=== PATIENT | female | born 1985 | race Caucasian/White ===

== ENCOUNTER 2017-12-20 21:40 | Emergency (ER) | payer MEDICARE, MEDICAID ==
[2017-12-20 22:22] LABS: ABSOLUTE BASOPHILS # (AUTO) 0.1 10^3/uL (0.0-0.2); ABSOLUTE EOSINOPHILS # (AUTO) 0.2 10^3/uL (0.0-0.6); ABSOLUTE LYMPHOCYTES (AUTO) 1.5 10^3/uL (0.5-4.7); ABSOLUTE MONOCYTES (AUTO) 0.2 10^3/uL (0.1-1.4); ABSOLUTE NEUT (AUTO) 5.3 10^3/uL (1.7-8.2); BASOPHILS % (AUTO) 0.8 % (0-2); EOSINOPHILS % (AUTO) 3.3 % (0-6); HEMATOCRIT 33.2 % (36.0-47.0); HEMOGLOBIN 11.3 g/dL (12.0-15.5); LYMPHOCYTES % (AUTO) 20.9 % (13-45); MEAN CORPUSCULAR HEMOGLOBIN 28.7 pg (27.0-33.4); MEAN CORPUSCULAR HGB CONC 34.2 g/dL (32.0-36.0); MEAN CORPUSCULAR VOLUME 84 fl (80-97); MONOCYTES % (AUTO) 2.7 % (3-13); PLATELET COUNT 251 10^3/uL (150-450); RED BLOOD COUNT 3.95 10^6/uL (3.72-5.28); RED CELL DISTRIBUTION WIDTH 13.7 % (11.5-14.0); SEGMENTED NEUTROPHILS % (AUTO) 72.3 % (42-78); TOTAL CELLS COUNTED % (AUTO) 100 %; WHITE BLOOD COUNT 7.4 10^3/uL (4.0-10.5)
[2017-12-20 22:33] LABS: ALANINE AMINOTRANSFERASE 19 U/L (9-52); ALBUMIN 3.2 g/dL (3.5-5.0); ALKALINE PHOSPHATASE 53 U/L (38-126); ANION GAP 14 (5-19); ASPARTATE AMINO TRANSFERASE 12 U/L (14-36); BILIRUBIN,DIRECT 0.4 mg/dL (0.0-0.4); BILIRUBIN,TOTAL 0.5 mg/dL (0.2-1.3); BLOOD UREA NITROGEN 32 mg/dL (7-20); CALCIUM 8.4 mg/dL (8.4-10.2); CARBON DIOXIDE 32 mmol/L (22-30); CHLORIDE 90 mmol/L (98-107); GLUCOSE 104 mg/dL (75-110); LIPASE 354.2 U/L (23-300); SODIUM 136.3 mmol/L (137-145); TOTAL PROTEIN 5.7 g/dL (6.3-8.2)
[2017-12-20 22:56] LABS: POTASSIUM 2.4 mmol/L (3.6-5.0)
[2017-12-20] MEDS ORDERED: ONDANSETRON HCL INJ/PF 4 MG/2 ML SDV IV ONE (23:35)
[2017-12-20] MEDS ORDERED: POTASSI CL 20 MEQ/50 ML RIDER 20 MEQ/50 ML RTUPB IV ONE (23:39)
--- NOTE | 2017-12-20 23:49 | ER Document Report ---
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 The patient was diagnosed as having PD catheter associated peritonitis on 16 December. She has been transitioned to intraperitoneal vancomycin for treatment of a staph epidermidis infection known to be sensitive to vancomycin based on culture data. She states that her PD fluid has become less cloudy but her abdominal pain does persist as does her ongoing vomiting. She describes her abdominal pain as being a severe, generalized, abdominal cramping. She states that she has taken Tylenol with minimal to no improvement of this pain. Nothing other than movement or touching the abdomen worsens the pain. She has no previous history of PD catheter associated peritonitis. She is being followed by her power plant electrician for this issue. She has continued to have fevers at home. She notes that she is intermittently able to tolerate oral intake but does have persistent vomiting throughout the day. She was informed that she was hypokalemic by her dialysis nurse and was encouraged to come to the emergency department for this issue. TRAVEL OUTSIDE OF THE [place] IN LAST 30 DAYS: No - Related Data Allergies/Adverse Reactions: No Known Allergies Allergy (Verified 12/20/17 22:39) Past Medical History - General Information source: Patient - Social History Smoking Status: Never Smoker Chew tobacco use (# tins/day): No Frequency of alcohol use: None Drug Abuse: None Lives with: Spouse/Significant other Family History: Reviewed & Not Pertinent Patient has suicidal ideation: No Patient has homicidal ideation: No Renal/ Medical History: Reports: Hx Peritoneal Dialysis Review of Systems - Review of Systems Notes: Constitutional: Positive for fever. HENT: Negative for sore throat. Eyes: Negative for visual changes. Cardiovascular: Negative for chest pain. Respiratory: Negative for shortness of breath. Gastrointestinal: Positive for abdominal pain and fever Genitourinary: Negative for dysuria. Musculoskeletal: Negative for back pain. Skin: Negative for rash. Neurological: Negative for headaches, weakness or numbness. 10 point ROS negative except as marked above and in HPI. Physical Exam - Vital signs Vitals: Resp 17 12/20/17 21:50 Interpretation: Tachycardic, Febrile Notes: PHYSICAL EXAMINATION: GENERAL: Appears uncomfortable and in pain. HEAD: Atraumatic, normocephalic. EYES: Pupils equal round and reactive to light, extraocular movements intact, sclera anicteric, conjunctiva are normal. ENT: nares patent, oropharynx clear without exudates. Moderately dry mucous membranes. NECK: Normal range of motion, supple without lymphadenopathy LUNGS: Breath sounds clear to auscultation bilaterally and equal. No wheezes rales or rhonchi. HEART: Regular tachycardia without murmurs ABDOMEN: Soft, distended abdomen. Generalized abdominal tenderness without localization of the pain. PD catheter in place of the left mid abdomen EXTREMITIES: Normal range of motion, no pitting or edema. No cyanosis. NEUROLOGICAL: No focal neurological deficits. Moves all extremities spontaneously and on command. PSYCH: Anxious, tearful. SKIN: Warm, Dry, normal turgor, no rashes or lesions noted. Course - Re-evaluation Re-evalutation: 12/20/17 23:42 Patient presents with known staph epidermidis PD catheter associated peritonitis currently treated with vancomycin as an outpatient with concerns of generalized and worsening abdominal pain as well as ongoing persistent vomiting that precludes her from being able to tolerate significant oral intake at home. Her potassium is notably low at 2.4. The patient is not in significant pain, has peritoneal signs on exam. Her PD catheter has not been changed out. We do not currently have nephrology almond sorter. I have discussed with the hospitalist who does not feel comfortable managing the patient in the absence of nephrology particular given that the patient may need her PD catheter exchanged. 12/21/17 00:07 I discussed this case with Dr. Hernandez at [facility] who is excepted the patient for transfer. Potassium and magnesium repletion have been initiated. 12/21/17 03:29 Patient has again become febrile here in the emergency department. Tylenol will be administered. Cultures have already been obtained. Will obtain repeat cultures from the PD fluid. Awaiting transport. - Vital Signs Vital signs: Temp Pulse Resp BP Pulse Ox 101.1 F H 20 103/41 L 94 12/21/17 02:05 12/21/17 02:01 12/21/17 01:01 12/21/17 02:01 - Laboratory Result Diagrams: 12/20/17 22:05 11/09/18 22:05 Laboratory results interpreted by me: 12/20/17 12/20/17 22:05 22:05 Hgb 11.3 L Hct 33.2 L Monocytes % 2.7 L Sodium 136.3 L Potassium 2.4 L* Chloride 90 L Carbon Dioxide 32 H BUN 32 H Creatinine 13.49 H Est GFR ( Amer) 4 L Est GFR (Non-Af Amer) 3 L AST 12 L Total Protein 5.7 L Albumin 3.2 L Lipase 354.2 H Discharge - Discharge Clinical Impression: Peritonitis in infectious disease Peritoneal dialysis catheter infection Qualifiers: Encounter type: initial encounter Qualified Code(s): T85.71XA - Infection and inflammatory reaction due to peritoneal dialysis catheter, initial encounter Nausea and vomiting Qualifiers: Vomiting type: unspecified Vomiting Intractability: non-intractable Qualified Code(s): R11.2 - Nausea with vomiting, unspecified Sepsis Qualifiers: Sepsis type: sepsis due to unspecified organism Qualified Code(s): A41.9 - Sepsis, unspecified organism Condition: Fair Disposition: [facility] Referrals: Lalit SCHWARTZ MD [Primary Care Provider] - Follow up as needed
[2017-12-20] MEDS: MORPHINE SULFATE 10 MG/ML INJ IV PRN (23:53)
[2017-12-21] MEDS: MAGNESIUM SULFATE/D5W 1 GM/100 ML RTUPB IV SCH ×2 (00:18→03:46)
[2017-12-21] MEDS ORDERED: ACETAMINOPHEN 325 MG TABLET PO ONE (03:29)
[2017-12-21] MEDS ORDERED: MAGNESIUM SULFATE/D5W 1 GM/100 ML RTUPB IV SCH (03:30)
[2017-12-21] MEDS ORDERED: NORMAL SALINE 1000 ML 250 ML IV ONE (03:33)
[2017-12-21] MEDS: MORPHINE SULFATE 10 MG/ML INJ IV PRN (03:45)
[2017-12-21 05:24] VITALS: BP 106/57
--- NOTE | 2017-12-21 07:50 | EKG REPORT ---
SEVERITY:- BORDERLINE ECG - SINUS TACHYCARDIA BORDERLINE T ABNORMALITIES, DIFFUSE LEADS : Confirmed by: Renato Dos Santos MD 21-Dec-2017 07:50:18
== END 2017-12-21 05:40 | disposition short-term general hospital (02) ==
LOC: ER 21:40
DX: T82.7XXA Infection and inflammatory reaction due to other cardiac and vascular devices, implants and grafts, initial encounter (principal); A41.9 Sepsis, unspecified organism; K65.9 Peritonitis, unspecified; Y84.1 Kidney dialysis as the cause of abnormal reaction of the patient, or of later complication, without mention of misadventure at the time of the procedure; R11.2 Nausea with vomiting, unspecified; R10.84 Generalized abdominal pain
CPT/HCPCS: 93005; 99285; 96375; 96365; 96366; 36415; 87040; 83605; 83690; 83735; 84703; 85025; 80053; 93010; A9270; J2270 ×2; J3475; J2405; J3480

== ENCOUNTER → 2017-12-20 | Outpatient (CLI) | payer MEDICARE, MEDICAID ==
[2017-12-20 14:53] LABS: VANCOMYCIN,TROUGH 16.2 ug/mL (5.0-20.0)
== END ==
LOC: OD 13:27
PROVIDERS: ATTEND Internal Medicine Nephrology
DX: K65.9 Peritonitis, unspecified (principal); Z79.2 Long term (current) use of antibiotics
CPT/HCPCS: 36415; 80202

== ENCOUNTER 2017-12-30 23:12 | Emergency (ER) | payer MEDICARE, MEDICAID ==
[2017-12-31 01:03] LABS: ABSOLUTE BASOPHILS # (AUTO) 0.1 10^3/uL (0.0-0.2); ABSOLUTE EOSINOPHILS # (AUTO) 0.3 10^3/uL (0.0-0.6); ABSOLUTE LYMPHOCYTES (AUTO) 1.1 10^3/uL (0.5-4.7); ABSOLUTE MONOCYTES (AUTO) 0.3 10^3/uL (0.1-1.4); ABSOLUTE NEUT (AUTO) 5.7 10^3/uL (1.7-8.2); BASOPHILS % (AUTO) 1.3 % (0-2); LYMPHOCYTES % (AUTO) 14.2 % (13-45); MEAN CORPUSCULAR HGB CONC 34.2 g/dL (32.0-36.0); MEAN CORPUSCULAR VOLUME 85 fl (80-97); MONOCYTES % (AUTO) 4.4 % (3-13); PLATELET COUNT 233 10^3/uL (150-450); RED BLOOD COUNT 4.13 10^6/uL (3.72-5.28); RED CELL DISTRIBUTION WIDTH 14.1 % (11.5-14.0); SEGMENTED NEUTROPHILS % (AUTO) 76.1 % (42-78); TOTAL CELLS COUNTED % (AUTO) 100 %; WHITE BLOOD COUNT 7.5 10^3/uL (4.0-10.5)
[2017-12-31 01:21] LABS: ALANINE AMINOTRANSFERASE 28 U/L (9-52); ALBUMIN 3.3 g/dL (3.5-5.0); ALKALINE PHOSPHATASE 107 U/L (38-126); ANION GAP 17 (5-19); ASPARTATE AMINO TRANSFERASE 23 U/L (14-36); BILIRUBIN,DIRECT 0.4 mg/dL (0.0-0.4); BILIRUBIN,TOTAL 0.5 mg/dL (0.2-1.3); BLOOD UREA NITROGEN 35 mg/dL (7-20); CALCIUM 9.2 mg/dL (8.4-10.2); CARBON DIOXIDE 29 mmol/L (22-30); CHLORIDE 96 mmol/L (98-107); GLUCOSE 85 mg/dL (75-110); POTASSIUM 3.2 mmol/L (3.6-5.0); SODIUM 141.6 mmol/L (137-145); TOTAL PROTEIN 5.9 g/dL (6.3-8.2)
[2017-12-31 01:28] LABS: ACETAMINOPHEN < 10 ug/mL (10-30); ALCOHOL < 10 mg/dL (NONE DETECTED); SALICYLATE < 1.0 mg/dL (2.0-20.0)
[2017-12-31 03:12] VITALS: BP 142/82
--- NOTE | 2017-12-31 04:16 | ER Document Report ---
ED General - General Chief Complaint: Psych Problem Stated Complaint: PSYCH EVAL Time Seen by Provider: 12/31/17 00:08 Mode of Arrival: Medic TRAVEL OUTSIDE OF THE [place] IN LAST 30 DAYS: No - HPI Patient complains to provider of: Anger Onset: Other - This is a 32-year-old female who presents for evaluation of threats to discontinue her peritoneal dialysis in the setting of FSGS. Her who is also the father of her 2 children notes that they were in disagreement tonight and that she did threaten to potentially stop her peritoneal dialysis. She currently denies any desire to harm herself or anyone else but is otherwise obstructive and difficult to obtain history from. - Related Data Allergies/Adverse Reactions: No Known Allergies Allergy (Verified 12/20/17 22:39) Past Medical History - General Information source: Patient, Relative - Social History Smoking Status: Unknown if Ever Smoked Chew tobacco use (# tins/day): No Frequency of alcohol use: None Drug Abuse: None Family History: Reviewed & Not Pertinent Patient has suicidal ideation: Yes Patient has homicidal ideation: No - Past Medical History Cardiac Medical History: Reports: Hx Hypertension Denies: Hx Coronary Artery Disease, Hx Heart Attack Pulmonary Medical History: Denies: Hx Asthma, Hx Bronchitis, Hx COPD, Hx Pneumonia Neurological Medical History: Denies: Hx Cerebrovascular Accident, Hx Seizures Endocrine Medical History: Reports: 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 Renal/ Medical History: Reports: Hx End Stage Renal Disease, Hx Peritoneal Dialysis GI Medical History: Reports: Hx Gastroesophageal Reflux Disease Musculoskeletal Medical History: Denies Hx Arthritis Past Surgical History: Reports: Hx Section, Hx Cholecystectomy - Immunizations Hx Diphtheria, Pertussis, Tetanus Vaccination: Yes Review of Systems - Review of Systems -: Yes All other systems reviewed and negative Physical Exam - Vital signs Vitals: Temp Pulse Resp BP Pulse Ox 98.5 F 116 H 20 145/107 H 100 12/30/17 23:26 12/30/17 23:26 12/30/17 23:26 12/30/17 23:26 12/30/17 23:26 - General General appearance: Appears well In distress: None - HEENT Head: Normocephalic, Atraumatic Eyes: Normal Pupils: PERRL - Respiratory Respiratory status: No respiratory distress Chest status: Nontender Breath sounds: Normal Chest palpation: Normal - Cardiovascular Rhythm: Regular Heart sounds: Normal auscultation Murmur: No - Abdominal Inspection: Other - Peritoneal dialysis catheter implanted Bowel sounds: Normal Tenderness: Nontender Organomegaly: No organomegaly - Back Back: Normal - Extremities General upper extremity: Normal inspection, Nontender, Normal color, Normal ROM , Normal temperature General lower extremity: Normal inspection, Nontender, Normal color, Normal ROM , Normal temperature, Normal weight bearing. No: Desmond's sign - Neurological Neuro grossly intact: Yes Cognition: Normal Orientation: AAOx4 A[place]on Coma Scale Eye Opening: Spontaneous Danitza Coma Scale Verbal: Oriented Danitza Coma Scale Motor: Obeys Commands Avalon Coma Scale Total: 15 Speech: Normal Motor strength normal: LUE, RUE, LLE, RLE Sensory: Normal - Psychological Associated symptoms: Agitated, Angry, Combative Course - Re-evaluation Re-evalutation: 12/31/17 04:17 32-year-old female presents for evaluation of anger reaction and threats to discontinue her peritoneal dialysis. Initially discussions with this patient she is difficult to obtain history from , she lashes out speaks specifically that she is frustrated that she is here does not know why she is here has no desire to harm herself but is uncertain how her mood is. Otherwise she does not wish to speak to me at this time. Patient at one point attempted to stand up and walk out at this time is uncertain whether or not she represents a danger to herself are now because she is on peritoneal dialysis and had made threats to discontinue it voluntarily. It is difficult to ascertain whether or not she is of sound mind. As such briefly place this patient up on hold, returned to her room, contacted her for collateral information. The notes that she has been difficult to deal with of late because they have differences of opinion frequently. They have had multiple episodes in which they disagreed and she lashed out sometimes with great anger at him. She is not doing anything violent or self-injurious however. I spoke to the and encouraged him to present to the emergency room with the patient's peritoneal dialysis equipment in case she needed to stay in the hospital. Upon reassessment with the we discussed the patient's desires including any desire to harm herself or anyone else she notes that she has no desire to harm anyone L or herself at this time that she is just tired of having to do peritoneal dialysis. She does not wish to discontinue her peritoneal dialysis however as she does have 2 children. We did speak at length about the importance of her obtaining appropriate follow- up including potential mental health evaluation through a therapist or her public health social worker who has a case for her already started. She and her were in agreement that they are safe at this time as there is no obvious desire for her to harm herself. She will resume her peritoneal dialysis at home. We will plan for this patient undergo discharge home with return precautions and follow-up with her public health social worker. - Vital Signs Vital signs: Temp Pulse Resp BP Pulse Ox 98.3 F 77 20 142/82 H 100 12/31/17 03:11 12/31/17 03:11 12/31/17 03:11 12/31/17 03:11 12/31/17 03:11 - Laboratory Result Diagrams: 12/31/17 00:53 12/31/17 00:53 Laboratory results interpreted by me: 12/31/17 12/31/17 00:53 00:53 Hct 35.0 L RDW 14.1 H Potassium 3.2 L Chloride 96 L BUN 35 H Creatinine 12.87 H Est GFR ( Amer) 4 L Est GFR (Non-Af Amer) 3 L Total Protein 5.9 L Albumin 3.3 L Salicylates < 1.0 L Acetaminophen < 10 L Discharge - Discharge Clinical Impression: Anger reaction, Peritoneal dialysis catheter in situ Condition: Good Disposition: HOME, SELF-CARE Additional Instructions: Your seen today in the emergency department for your dialysis threats. You had an evaluation including a physical exam and blood work. In discussion with you as well as your it does not seem that you represent a danger to yourself or anyone else at this time. You should continue your peritoneal dialysis as previously. You should contact her public health social worker in the morning to talk about potential follow-up with a therapist. He should return for any worsening fevers or chills, abdominal pain or other symptoms. If you have any desire to hurt yourself please return to the emergency room. Referrals: Lalit SCHWARTZ MD [Primary Care Provider] - Follow up as needed
--- NOTE | 2017-12-31 15:45 | EKG REPORT ---
SEVERITY:- NORMAL ECG - SINUS RHYTHM : Confirmed by: Corinne Bahena MD 31-Dec-2017 15:45:04
== END 2017-12-31 03:21 | disposition home or self-care (01) ==
LOC: ER 23:12
DX: R45.4 Irritability and anger (principal); Z99.2 Dependence on renal dialysis
CPT/HCPCS: 36415; 80053; 80307; 84703; 85025; 93005; 93010; 99285

== ENCOUNTER → 2018-01-01 | Outpatient (CLI) | payer MEDICARE, MEDICAID ==
[2018-01-01 14:31] LABS: VANCOMYCIN,TROUGH 21.2 ug/mL (5.0-20.0)
== END ==
LOC: OD 13:10
PROVIDERS: ATTEND Internal Medicine Nephrology
DX: E87.6 Hypokalemia (principal)
CPT/HCPCS: 36415; 80202; 84132

== ENCOUNTER 2018-02-24 05:59 | Day surgery (SDC) | payer MEDICARE, MEDICAID ==
[~2018-02-24 05:59] MED LIST: DIAZEPAM 5 MG TABLET ONE; DIAZEPAM 5 MG TABLET PO PRN; OXYCODONE-ACETAMINOPHEN 5-325 MG TABLET ONE; OXYCODONE-ACETAMINOPHEN 5-325 MG TABLET PO PRN
[2018-02-24 07:11] LABS: ABSOLUTE BASOPHILS # (AUTO) 0.1 10^3/uL (0.0-0.2); ABSOLUTE EOSINOPHILS # (AUTO) 0.2 10^3/uL (0.0-0.6); ABSOLUTE LYMPHOCYTES (AUTO) 1.2 10^3/uL (0.5-4.7); ABSOLUTE MONOCYTES (AUTO) 0.3 10^3/uL (0.1-1.4); ABSOLUTE NEUT (AUTO) 4.8 10^3/uL (1.7-8.2); BASOPHILS % (AUTO) 1.2 % (0-2); EOSINOPHILS % (AUTO) 3.4 % (0-6); HEMATOCRIT 29.5 % (36.0-47.0); HEMOGLOBIN 10.2 g/dL (12.0-15.5); LYMPHOCYTES % (AUTO) 18.4 % (13-45); MEAN CORPUSCULAR HEMOGLOBIN 29.6 pg (27.0-33.4); MEAN CORPUSCULAR HGB CONC 34.7 g/dL (32.0-36.0); MEAN CORPUSCULAR VOLUME 85 fl (80-97); MONOCYTES % (AUTO) 4.2 % (3-13); PLATELET COUNT 179 10^3/uL (150-450); RED BLOOD COUNT 3.46 10^6/uL (3.72-5.28); RED CELL DISTRIBUTION WIDTH 15.4 % (11.5-14.0); SEGMENTED NEUTROPHILS % (AUTO) 72.8 % (42-78); TOTAL CELLS COUNTED % (AUTO) 100 %; WHITE BLOOD COUNT 6.6 10^3/uL (4.0-10.5)
[2018-02-24 07:23] LABS: ANION GAP 10 (5-19); BLOOD UREA NITROGEN 32 mg/dL (7-20); CALCIUM 8.6 mg/dL (8.4-10.2); CARBON DIOXIDE 26 mmol/L (22-30); CHLORIDE 104 mmol/L (98-107); GLUCOSE 87 mg/dL (75-110); POTASSIUM 5.5 mmol/L (3.6-5.0); SODIUM 140.2 mmol/L (137-145)
[2018-02-24] MEDS ORDERED: LIDOCAINE 0.5% INJ-PF (5 MG/ML) 50 ML SDV ONE (07:39)
[2018-02-24] MEDS ORDERED: HEPARIN SOD (PORCINE) 5,000 UNIT/ML 1 ML SYRINGE ONE (07:50)
[2018-02-24] MEDS ORDERED: FENTANYL CITRATE INJ/PF 100 MCG/2 ML AMPUL ONE (07:50)
[2018-02-24] MEDS ORDERED: MIDAZOLAM 2 MG/2 ML INJ ONE (07:50)
[2018-02-24] MEDS ORDERED: ONDANSETRON HCL INJ/PF 4 MG/2 ML SDV ONE (09:51)
--- NOTE | 2018-02-24 10:49 | Discharge Summary ---
Discharge Summary (SDC) - Discharge Final Diagnosis: #1 malfunctioning AV fistula left radiocephalic. 2. End-stage renal disease on hemodialysis. 3. PermCath in place, right internal jugular. 4. Hypertension. Date of Surgery: 02/24/18 Discharge Date: 02/24/18 Condition: Good Treatment or Instructions: Discharge home [after recovery per ASU criteria]. Diet , [renal],as tolerated, when fully awake advance as tolerated. Activities within moderation encouraged. Follow up in my office by appointment in 2 days to a week. Call for appointment. Leave wounds [covered], [keep clean and dry, until office visit. Hold of on school/work [until evaluation in office]. Meds per med rec. May shower [in 48 hrs], [try to keep operated area as dry as possible]. Referrals: TERRELL BYRNE FNP-C [Primary Care Provider] - Discharge Diet: Other (Comments) - Renal. Respiratory Treatments at Home: Deep Breathing/Coughing Discharge Activity: Activity As Tolerated Report the Following to Your Physician Immediately: Shortness of Breath, Unusual Bleeding
--- NOTE | 2018-02-24 10:56 | Operative Report ---
Operative Report DATE OF SURGERY: 02/24/18 PREOPERATIVE DIAGNOSIS: #1 malfunctioning AV fistula left radiocephalic. 2. E nd-stage renal disease on hemodialysis. 3. PermCath in place, right internal jugular. 4. Hypertension. POSTOPERATIVE DIAGNOSIS: #1 malfunctioning AV fistula left radiocephalic. 2. End-stage renal disease on hemodialysis. 3. PermCath in place, right internal jugular. 4. Hypertension. OPERATION: 1. Ultrasound evaluation and real-time needle access into left forearm radiocephalic fistula. 2. Angioplasty and fistula, multiple. 3. Angiogram and interpretation. SURGEON: GRECIA HALL FINANCIAL RECORDING CLERK: None. ANESTHESIA: Moderate Sedation TISSUE REMOVED OR ALTERED: Not applicable. COMPLICATIONS: None. ESTIMATED BLOOD LOSS: 2 mL. INTRAOPERATIVE FINDINGS: Of a well founded AV fistula, left radiocephalic. Radial artery still somewhat on the small side but probably appropriate. Hyper pulsatile in the first 3 centimeters. An area of stenosis about 5 mm long about 1 cm away from the anastomosis appreciated. This was dilated with improvement although some residual stenosis. Stenosis estimated to be about 70% of the adjacent lumen. Also noted is a large draining side branch somewhat laterally and at about 6 cm from the anastomosis. The area from about 6 cm to about 14 cm was dilated up to 7 mm which with much improvement angiographically and also to palpation. The fistula may be available for use within a week. It may be necessary to ligate the draining branch which could be done in the operating room. Also repeat dilatation under heavier anesthesia may be indicated for the residual stenosis in the perianastomotic area. The patient seemed unusually sensitive to catheterization, Glidewire at the wrist was perceived as pain. We may need to use anesthesia monitoring with heavier sedation in future. PROCEDURE: PROCEDURE: After verifying the procedure and having obtained informed consent, the patient's left arm and forearm were prepared with Chlorhexidine and draped out with sterile linen. Local anesthesia infiltrated. Percutaneous access into the fistula ,[retrograde], obtained about [20 cm] from the arteriovenous anastomosis using a micro puncture needle followed by micro puncture wire and then a micro puncture catheter. This was done on ultrasound guidance using real-time access into the vein. Ultrasound was also used to size the vein. Angiogram demonstrated the aforementioned findings. Angioplasty was elected. A 0.035 Conway wire was inserted, and over this, a 6 [place] short introducer was placed, this was followed by a 5 mm angioplasty balloon . Angioplasty was now done at the perianastomotic segment. This was done very carefully using a 3 mils syringe sustained for 2 minutes. Angiogram demonstrated successful outcome, with some residual stenosis palpation continued to demonstrate hyper pulsatility. The balloon was now swapped over the wire for a 7 mm conquest angioplasty balloon. Angioplasty was done using the 6 cm long balloon to the introducer. Inflating with a 3 mils syringe for 3 minutes.]. Completion angiogram demonstrated [satisfactory result]. The instrumentation was now withdrawn over hand pressure for 10 minutes . Dressings applied, procedure concluded. Exposure time: 0.9 minutes Radiation: 2.79 Kylah lewis. Contrast: 25 mL of Isovue-M 300 low osmolality. DICTATING PHYSICIAN: GRECIA FERRERA M.D. cc: GRECIA FERRERA M.D. ([id number]) >>
[2018-02-24 15:29] VITALS: BP 136/76
--- NOTE | 2018-02-25 12:43 | RADIOLOGY REPORT (SQ) ---
EXAM DESCRIPTION: FISTULAGRAM W/PLASTY COMPLETED DATE/TIME: 02/25/2018 11:51 am REASON FOR STUDY: T82.858A T82.858A STENOSIS OF OTHER VASCULAR PROSTH DEV/GRFT, INIT Z79.899 OTHER NUCLEAR PLANT TECHNICAL ADVISOR (CURRENT) DRUG THERAPY COMPARISON: None. FLUOROSCOPY TIME: 0.9 minute. 65 images saved to PACS. TECHNIQUE: Intra-operative images acquired during surgical procedure to evaluate progress. NUMBER OF IMAGES: 65 images. LIMITATIONS: None. FINDINGS: Imaging in fluoroscopy during left upper extremity dialysis access evaluation and plasty b y Dr. Gil . Please refer to the operative report for further details. IMPRESSION: INTRA PROCEDURAL IMAGING ABOVE . COMMENT: Quality ID [id number]: Final reports for procedures using fluoroscopy that document radiation exp osure indices, or exposure time and number of fluorographic images (if radiation exposure indices are not available) Please consult full operative report of the attending physician for description of the procedure. TECHNICAL DOCUMENTATION: JOB ID: [id number] [employer]- All Rights Reserved Reading location - IP/workstation name: [email or web address]
== END 2018-02-24 11:45 | disposition home or self-care (01) ==
LOC: CCL 05:59
PROVIDERS: ATTEND Surgery
DX: T82.858A Stenosis of other vascular prosthetic devices, implants and grafts, initial encounter (principal); Y83.2 Surgical operation with anastomosis, bypass or graft as the cause of abnormal reaction of the patient, or of later complication, without mention of misadventure at the time of the procedure; I12.0 Hypertensive chronic kidney disease with stage 5 chronic kidney disease or end stage renal disease; N18.6 End stage renal disease; Z99.2 Dependence on renal dialysis; Z79.899 Other long term (current) drug therapy; Z01.818 Encounter for other preprocedural examination
CPT/HCPCS: 36415; 85025; 80048; 36902; 76937; C1752; C1725 ×2; C1887; C1894; C1769; J2250; J1644 ×2; A9270 ×2; J3010; J3490; J2405

== ENCOUNTER 2018-04-08 10:00 | Day surgery (SDC) | payer MEDICARE, MEDICAID ==
[2018-04-08] MEDS ORDERED: DIAZEPAM 5 MG TABLET ONE (11:05)
[2018-04-08] MEDS ORDERED: LIDOCAINE 0.5% INJ-PF (5 MG/ML) 50 ML SDV ONE (11:06)
[2018-04-08] MEDS ORDERED: OXYCODONE-ACETAMINOPHEN 5-325 MG TABLET ONE (11:06)
[2018-04-08] MEDS ORDERED: BACITRACIN INJ 50,000 UNIT VIAL ONE (11:06)
[2018-04-08 11:17] LABS: HEMATOCRIT 34.6 % (36.0-47.0); HEMOGLOBIN 11.8 g/dL (12.0-15.5); MEAN CORPUSCULAR HEMOGLOBIN 30.2 pg (27.0-33.4); MEAN CORPUSCULAR VOLUME 89 fl (80-97); PLATELET COUNT 198 10^3/uL (150-450); RED CELL DISTRIBUTION WIDTH 14.7 % (11.5-14.0); WHITE BLOOD COUNT 5.4 10^3/uL (4.0-10.5)
[2018-04-08 11:35] LABS: ANION GAP 11 (5-19); BLOOD UREA NITROGEN 53 mg/dL (7-20); CALCIUM 8.9 mg/dL (8.4-10.2); CARBON DIOXIDE 26 mmol/L (22-30); CHLORIDE 104 mmol/L (98-107); GLUCOSE 79 mg/dL (75-110); POTASSIUM 5.3 mmol/L (3.6-5.0); SODIUM 141.2 mmol/L (137-145)
[2018-04-08] MEDS ORDERED: CEFAZOLIN 1 GM/D5W RTU 1 GM/50 ML RTUPB IV PRN (12:00)
[2018-04-08] MEDS ORDERED: CEFAZOLIN INJ 1 GM VIAL ONE (12:04)
[2018-04-08] MEDS ORDERED: MIDAZOLAM 2 MG/2 ML INJ ONE (12:04)
[2018-04-08] MEDS ORDERED: FENTANYL CITRATE INJ/PF 100 MCG/2 ML AMPUL ONE (12:04)
[2018-04-08] MEDS ORDERED: VANCOMYCIN HCL 500 MG in DEXTROSE 5%-WATER 100 ML IV PRN (12:30)
--- NOTE | 2018-04-08 13:56 | PDOC H&P ---
General Chief Complaint: This patient is recently established on the left radiocephalic fistula. Unfortunately it is infiltrated and is not usable at this point. She is therefore in for insertion of a PermCath with the hope of taking it out after about 2 weeks once established in her fistula. - Diagnosis (1) Diabetes mellitus Is this a Current Diagnosis?: Yes (2) ESRD (end stage renal disease) on dialysis Is this a Current Diagnosis?: Yes (3) Hypertension Is this a Current Diagnosis?: Yes - Current Medications/Allergies Home Medications: Carvedilol [Coreg 12.5 mg Tablet] 12.5 mg PO Q12 05/28/16 Hydralazine HCl [Apresoline 25 mg Tablet] 25 mg PO BID 05/28/16 Alprazolam [Xanax] 1 mg PO PRN PRN 07/20/16 Furosemide [Lasix] 40 mg PO BID 07/20/16 Allergies/Adverse Reactions: No Known Allergies Allergy (Verified 02/24/18 07:03) Past Medical History Cardiac Medical History: Reports: Hypertension - on meds Denies: Coronary Artery Disease, Myocardial Infarction Pulmonary Medical History: Denies: Asthma, Bronchitis, Chronic Obstructive Pulmonary Disease (COPD), Pneumonia Neurological Medical History: Denies: Seizures Endocrine Medical History: Reports: Diabetes Mellitus Type 2 - Steroid-induced diabetes Renal/ Medical History: Reports: End Stage Renal Disease GI Medical History: Reports: Gastroesophageal Reflux Disease Musculoskeltal Medical History: Denies: Arthritis Hematology: Denies: Anemia Past Surgical History Past Surgical History: Reports: Section, Cholecystectomy Family History Family History: Reviewed & Not Pertinent Parental Family History Reviewed: No Children Family History Reviewed: No Sibling(s) Family History Reviewed.: No Social History Smoking Status: Former Smoker Frequency of Alcohol Use: None Hx Recreational Drug Use: No Drugs: None Hx Prescription Drug Abuse: No Physical Exam Vital Signs: Temp Pulse Resp BP Pulse Ox 98.8 F 58 L 18 191/108 H 100 04/08/18 11:30 04/08/18 11:30 04/08/18 11:30 04/08/18 11:30 04/08/18 11:30 Intake & Output 04/07/18 04/08/18 04/09/18 06:59 06:59 06:59 Weight 105 kg Additional comments: Constitutional: Well-developed well-nourished lady, increased body mass index. No apparent acute distress. Eyes: Mucous membranes pink and moist, pupils equal and reactive to light. Conjunctiva normal. Cornea normal. ENT: Hearing grossly normal. External pinna normal to inspection. Teeth intact. Tongue normal to inspection. Chest: Left-sided tattoos noted. Scars of previous PermCath on the right. Respiratory: Normal respiratory effort. Psychiatric: Judgment, memory, insight seem normal. Mood is pleasant and appropriate. Extremities: Upper extremities show normal range of movement. Pulses present noted to the radial arteries. Capillary refill normal. No cyanosis noted. No muscle wasting noted. Left-sided radiocephalic fistula with excellent bruit. Considerable swelling bruising and induration secondary to infiltration. Impression/Plan Plan: The plan is to insert a permacatheter in this patient who has not had dialysis in several days. The hope is to rest her fistula to allow dissipation of the infiltrate and use of her fistula. The hope is to get rid of the PermCath within 2 weeks.
--- NOTE | 2018-04-08 13:58 | Discharge Summary ---
Discharge Summary (SDC) - Discharge Final Diagnosis: #1 infiltration of AV fistula. 2. End-stage renal disease on hemodialysis. 3. Diabetes mellitus type 2. 4. Hypertension. Treatment or Instructions: Discharge home [after recovery per ASU criteria]. Diet , [renal],as tolerated, when fully awake advance as tolerated. Activities within moderation encouraged. Follow up in my office by appointment on of this week. Call for appointment. Leave wounds [covered], [keep clean and dry, until office visit. Meds per med rec. May shower [in 48 hrs], [try to keep operated area as dry as possible]. Referrals: TERRELL BYRNE FNP-C [Primary Care Provider] - Discharge Diet: Other (Comments) - Renal, diabetic. Respiratory Treatments at Home: Deep Breathing/Coughing Discharge Activity: Activity As Tolerated Report the Following to Your Physician Immediately: Shortness of Breath
--- NOTE | 2018-04-08 14:04 | Operative Report ---
Operative Report DATE OF SURGERY: 04/08/18 PREOPERATIVE DIAGNOSIS: #1 infiltration of AV fistula. 2. End-stage renal dis ease on hemodialysis. 3. Diabetes mellitus type 2. 4. Hypertension. POSTOPERATIVE DIAGNOSIS: #1 infiltration of AV fistula. 2. End-stage renal disease on hemodialysis. 3. Diabetes mellitus type 2. 4. Hypertension. OPERATION: 1. Ultrasound evaluation of both right and left internal jugular veins. 2. Attempted venous access in the right internal jugular vein under real-time ultrasound guidance. 3. Access in the left internal jugular vein under ultrasound guidance. 4. Left-sided PermCath insertion. 5. Angiogram and interpretation. SURGEON: GRECIA HALL STOCK MANAGER: None. ANESTHESIA: Moderate Sedation TISSUE REMOVED OR ALTERED: Not applicable. COMPLICATIONS: Right internal jugular vein thrombosed. Challenging access through the left. ESTIMATED BLOOD LOSS: 5 mL. INTRAOPERATIVE FINDINGS: Of a partially thrombosed right internal jugular vein. Access proved difficult and the site was abandoned. Satisfactory visualization and access in the left vein. Estimated 1.5 cm in diameter. Preferential tracking of the Glidewire down into branches of the innominate vein. This was elucidated on angiogram. Satisfactory manipulation of Glidewire down the innominate and superior vena cava and inferior vena cava. Need for a ultra- stiff guidewire because of a tendency to buckle with discomfort to the patient. Ultra-stiff Glidewire was of immeasurable benefit and allowed satisfactory insertion of catheter. Easy egress of blood and ingress of heparinized solution. Contrast demonstrates smooth flow of contrast through the right atrium, ventricle and pulmonary outflow tract. PROCEDURE: After obtaining informed consent, the patient was taken to the [[facility] [employer]] and positioned supine. The [right neck] and chest were prepared with chlorhexidine and draped out with sterile linen. After the " universal timeout", in which it was verified that the patient continued to receive antibiotic, the procedure commenced. A steriley sheathed ultrasound probe was used to evaluate the [right internal jugular] vein. Local anesthesia was infiltrated adjacent to the probe. Access into the [right internal jugular] vein was attempted using a micropuncture needle. Several such attempts were made. With inability to confirm adequate position of the Glidewire this route was abandoned. The left neck was now prepared and draped out. Access into the left internal jugular vein was obtained under ultrasound guidance, real-time was obtained using a micropuncture needle, followed by micropuncture wire and then a micropuncture catheter. This was followed by introduction of a 0.035 gluidewire the tip of which was placed down into the inferior vena cava . A 27 cm long [per catheter] was now positioned over the chest and an exit site marked and locally anesthetized ,the catheter was placed between the 2 incisions. Proximally, the catheter was now positioned using a peel-away sheath, after dilation. Dilation was challenging as there was a tendency for the wire to track down was rather than following the course of the left innominate. For this reason the Glidewire was replaced with a super stiff Glidewire. This allowed satisfactory and safe tracking of the catheters. Easy ingress of heparinized solution and egress of blood obtained through both ports. A completion angiogram was done by injecting contrast. The findings were as dictated. The neck incision was now closed using interrupted 3-0 PDS to the subcutaneous tissues, the catheter was anchored at the exit site using 3-0 PDS. A Biopatch device was now placed adjacent to the catheter. Dressings were applied and the procedure concluded. Copies of the dictated operative report for Dr. Grecia Gil MD.concluded. Copies of the dictated operative report for Dr. Grecia Gil MD.
[2018-04-08] MEDS ORDERED: ONDANSETRON 4 MG TAB.RAPDIS ONE (14:49)
--- NOTE | 2018-04-08 14:59 | RADIOLOGY REPORT (SQ) ---
EXAM DESCRIPTION: TUNNELED CENTRAL LINE; GUIDANCE FLUOROSCOPIC COMPLETED DATE/TIME: 04/08/2018 1:52 pm REASON FOR STUDY: NEED FOR VASCULAR ACCESS T82.858A STENOSIS OF OTHER VASCULAR PROSTH DEV/GRFT, INI T COMPARISON: None. FLUOROSCOPY TIME: 2.1 minutes 45 digital radiographic fluoroscopic images saved to PACS. TECHNIQUE: Intra-operative images acquired during surgical procedure to evaluate progress. NUMBER OF IMAGES: 45 digital fluoroscopic images LIMITATIONS: None. FINDINGS: Intra procedural imaging and fluoro during placement of a left-sided central venous dialys is catheter with the tip in the right atrium. Please see the operative report for further details IMPRESSION: INTRA PROCEDURAL IMAGING ABOVE . COMMENT: Quality ID [id number]: Final reports for procedures using fluoroscopy that document radiation exp osure indices, or exposure time and number of fluorographic images (if radiation exposure indices are not available) Please consult full operative report of the attending physician for description of the procedure. TECHNICAL DOCUMENTATION: JOB ID: [id number] [employer]- All Rights Reserved Reading location - IP/workstation name: [email or web address]
--- NOTE | 2018-04-08 14:59 | RADIOLOGY REPORT (SQ) ---
EXAM DESCRIPTION: TUNNELED CENTRAL LINE; GUIDANCE FLUOROSCOPIC COMPLETED DATE/TIME: 04/08/2018 1:52 pm REASON FOR STUDY: NEED FOR VASCULAR ACCESS T82.858A STENOSIS OF OTHER VASCULAR PROSTH DEV/GRFT, INI T COMPARISON: None. FLUOROSCOPY TIME: 2.1 minutes 45 digital radiographic fluoroscopic images saved to PACS. TECHNIQUE: Intra-operative images acquired during surgical procedure to evaluate progress. NUMBER OF IMAGES: 45 digital fluoroscopic images LIMITATIONS: None. FINDINGS: Intra procedural imaging and fluoro during placement of a left-sided central venous dialys is catheter with the tip in the right atrium. Please see the operative report for further details IMPRESSION: INTRA PROCEDURAL IMAGING ABOVE . COMMENT: Quality ID [id number]: Final reports for procedures using fluoroscopy that document radiation exp osure indices, or exposure time and number of fluorographic images (if radiation exposure indices are not available) Please consult full operative report of the attending physician for description of the procedure. TECHNICAL DOCUMENTATION: JOB ID: [id number] [employer]- All Rights Reserved Reading location - IP/workstation name: [email or web address]
[2018-04-08] MEDS ORDERED: HYDRALAZINE HCL 25 MG TABLET PO ONE (15:30)
[2018-04-08] MEDS ORDERED: CARVEDILOL 12.5 MG TABLET PO ONE (15:30)
[2018-04-08] MEDS ORDERED: FUROSEMIDE 40 MG TABLET PO ONE (15:30)
[2018-04-08] MEDS ORDERED: ONDANSETRON 4 MG TAB.RAPDIS PO ONE (15:30)
[2018-04-08 20:19] VITALS: BP 199/111
== END 2018-04-08 15:40 | disposition home or self-care (01) ==
LOC: CCL 10:00
PROVIDERS: ATTEND Surgery
DX: T82.858A Stenosis of other vascular prosthetic devices, implants and grafts, initial encounter (principal); Y83.2 Surgical operation with anastomosis, bypass or graft as the cause of abnormal reaction of the patient, or of later complication, without mention of misadventure at the time of the procedure; E11.22 Type 2 diabetes mellitus with diabetic chronic kidney disease; I12.0 Hypertensive chronic kidney disease with stage 5 chronic kidney disease or end stage renal disease; N18.6 End stage renal disease; Z99.2 Dependence on renal dialysis; Z79.899 Other long term (current) drug therapy; E09.9 Drug or chemical induced diabetes mellitus without complications; K21.9 Gastro-esophageal reflux disease without esophagitis
CPT/HCPCS: 36415; 85027; 80048; 36558; 76937; 77001; C1769 ×3; C1752; Q9967; J2250; J3490 ×2; J0690; A9270 ×6; J3010; J3370; J1644; S0119

== ENCOUNTER 2019-04-09 17:59 | Emergency (ER) | payer MEDICARE, MEDICAID ==
[2019-04-09] MEDS ORDERED: ONDANSETRON 4 MG TAB.RAPDIS PO ONE (18:36)
--- NOTE | 2019-04-09 18:38 | ER Document Report ---
ED Medical Screen (RME) - General Chief Complaint: Cough Stated Complaint: COUGH,SHORT OF BREATH,NAUSEA Time Seen by Provider: 04/09/19 18:26 Primary Care Provider: TERRELL BYRNE FNP-C [Primary Care Provider] - Follow up as needed Notes: HPI: 33-year-old female who is a dialysis patient of Dr. Valencia, presenting to the emergency department complaining of flulike symptoms for 1 day. Patient states she did have dialysis yesterday, normally has Saturday. States that she began with cough that is dry in nature, slight shortness of breath, low-grade fevers and body aches. Has had nausea with one episode of vomiting yesterday I have greeted and performed a rapid initial assessment of this patient. A comprehensive ED assessment and evaluation of the patient, analysis of test results and completion of the medical decision making process will be conducted by additional ED providers PHYSICAL EXAMINATION: GENERAL: Well-appearing, well-nourished and in mild acute distress. HEAD: Atraumatic, normocephalic. EYES: sclera anicteric, conjunctiva are normal. ENT: Moist mucous membranes. NECK: Normal range of motion LUNGS: Normal work of breathing, clear to auscultation HEART: 2+ radial pulses bilaterally, mild tachycardia ABD: limited by positioning for exam in triage. EXTREMITIES: no pitting or edema. No cyanosis. Dialysis shunt left wrist with positive thrill and bruit NEUROLOGICAL: No focal neurological deficits. Moves all extremities spontaneously and on command. PSYCH: Normal mood, normal affect. SKIN: Warm, Dry, normal turgor, no rashes or lesions noted. TRAVEL OUTSIDE OF THE [place] 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 Renal/ Medical History: Reports: Hx End Stage Renal Disease, Hx Peritoneal Dialysis GI Medical History: Reports: Hx Gastroesophageal Reflux Disease Musculoskeltal Medical History: Denies Hx Arthritis Past Surgical History: Reports: Hx Section, Hx Cholecystectomy - Immunizations Hx Diphtheria, Pertussis, Tetanus Vaccination: Yes Physical Exam - Vital signs Vitals: Temp Pulse Resp BP Pulse Ox 98.1 F 72 16 147/81 H 98 04/09/19 18:07 04/09/19 18:07 04/09/19 18:07 04/09/19 18:07 04/09/19 18:07 Course - Vital Signs Vital signs: Temp Pulse Resp BP Pulse Ox 98.1 F 72 16 147/81 H 98 04/09/19 18:07 04/09/19 18:07 04/09/19 18:07 04/09/19 18:07 04/09/19 18:07 Doctor's Discharge - Discharge Referrals: TERRELL BYRNE FNP-C [Primary Care Provider] - Follow up as needed
[2019-04-09] MEDS ORDERED: IPRATROPIUM/ALBUTEROL 0.5-2.5 MG/3 ML AMPUL NEB ONE (18:46)
[2019-04-09 18:59] LABS: ABSOLUTE EOSINOPHILS # (AUTO) 0.2 10^3/uL (0.0-0.6); ABSOLUTE MONOCYTES (AUTO) 0.3 10^3/uL (0.1-1.4); ABSOLUTE NEUT (AUTO) 3.8 10^3/uL (1.7-8.2); BASOPHILS % (AUTO) 0.4 % (0-2); EOSINOPHILS % (AUTO) 3.4 % (0-6); HEMATOCRIT 27.9 % (36.0-47.0); HEMOGLOBIN 9.9 g/dL (12.0-15.5); LYMPHOCYTES % (AUTO) 18.3 % (13-45); MEAN CORPUSCULAR HEMOGLOBIN 30.6 pg (27.0-33.4); MEAN CORPUSCULAR HGB CONC 35.3 g/dL (32.0-36.0); MEAN CORPUSCULAR VOLUME 87 fl (80-97); PLATELET COUNT 194 10^3/uL (150-450); RED BLOOD COUNT 3.22 10^6/uL (3.72-5.28); RED CELL DISTRIBUTION WIDTH 13.6 % (11.5-14.0); SEGMENTED NEUTROPHILS % (AUTO) 71.9 % (42-78); TOTAL CELLS COUNTED % (AUTO) 100 %; WHITE BLOOD COUNT 5.3 10^3/uL (4.0-10.5)
[2019-04-09 19:17] LABS: A TYPE INFLUENZA AG NEGATIVE (NEGATIVE); ALBUMIN 3.9 g/dL (3.5-5.0); ALKALINE PHOSPHATASE 52 U/L (38-126); ANION GAP 9 (5-19); ASPARTATE AMINO TRANSFERASE 19 U/L (14-36); B INFLUENZA AG NEGATIVE (NEGATIVE); BILIRUBIN,DIRECT 0.3 mg/dL (0.0-0.4); BILIRUBIN,TOTAL 0.6 mg/dL (0.2-1.3); BLOOD UREA NITROGEN 23 mg/dL (7-20); CALCIUM 8.9 mg/dL (8.4-10.2); CARBON DIOXIDE 29 mmol/L (22-30); CHLORIDE 101 mmol/L (98-107); GLUCOSE 80 mg/dL (75-110); POTASSIUM 4.9 mmol/L (3.6-5.0); TOTAL PROTEIN 6.5 g/dL (6.3-8.2)
--- NOTE | 2019-04-09 19:20 | RADIOLOGY REPORT (SQ) ---
EXAM DESCRIPTION: CHEST 2 VIEWS COMPLETED DATE/TIME: 04/09/2019 6:50 pm REASON FOR STUDY: cough fever COMPARISON: 05/27/2016 EXAM PARAMETERS: NUMBER OF VIEWS: two views TECHNIQUE: Digital Frontal and Lateral radiographic views of the chest acquired. RADIATION DOSE: NA LIMITATIONS: none FINDINGS: LUNGS AND PLEURA: No opacities, masses or pneumothorax. No pleural effusion. MEDIASTINUM AND HILAR STRUCTURES: No masses or contour abnormalities. HEART AND VASCULAR STRUCTURES: Heart normal size. No evidence for failure. BONES: No acute findings. HARDWARE: None in the chest. OTHER: No other significant finding. IMPRESSION: NO ACUTE RADIOGRAPHIC FINDING IN THE CHEST. TECHNICAL DOCUMENTATION: JOB ID: [id number] 2010 [employer]- All Rights Reserved Reading location - IP/workstation name: [email or web address]
--- NOTE | 2019-04-09 21:50 | ER Document Report ---
ED Flu Like - General Chief Complaint: Flu Symptoms Stated Complaint: COUGH,SHORT OF BREATH,NAUSEA Time Seen by Provider: 04/09/19 21:36 Primary Care Provider: TERRELL BYRNE FNP-C [Primary Care Provider] - Follow up tomorrow Mode of Arrival: Ambulatory Information source: Patient Notes: Patient presents complaining of flulike symptoms for the past day. Patient re ports developing a cough yesterday with shortness of breath. Patient reports fever as high as 101 at home. Patient does report nausea with one episode of vomiting yesterday. Patient does report recent sick contacts with similar symptoms in the household. Patient is a dialysis patient who dialyzes on Saturday. Patient last dialyzed on Saturday. TRAVEL OUTSIDE OF THE [place] IN LAST 30 DAYS: No - HPI Onset: Yesterday Timing/Duration: Persistent Quality of pain: Achy Associated symptoms: Chills, Nonproductive cough, Fever, Rhinnorhea, Shortness of breath Similar symptoms previously: No Recently seen / treated by doctor: No - Related Data Allergies/Adverse Reactions: No Known Allergies Allergy (Verified 04/09/19 18:25) Past Medical History - General Information source: Patient - Social History Smoking Status: Never Smoker Frequency of alcohol use: None Drug Abuse: None Occupation: None Lives with: Family Family History: Reviewed & Not Pertinent Patient has suicidal ideation: No Patient has homicidal ideation: No - Past Medical History Cardiac Medical History: Reports: Hx Hypertension - on meds Neurological Medical History: Denies: Hx Cerebrovascular Accident, Hx Seizures Endocrine Medical History: Reports: 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 Renal/ Medical History: Reports: Hx End Stage Renal Disease, Hx Hemodialysis, Hx Peritoneal Dialysis GI Medical History: Reports: Hx Gastroesophageal Reflux Disease Past Surgical History: Reports: Hx Section, Hx Cholecystectomy, Hx Vascular Surgery - Immunizations Hx Diphtheria, Pertussis, Tetanus Vaccination: Yes Review of Systems - Review of Systems Constitutional: Fever EENT: Nose congestion, Nose discharge. denies: Throat pain Cardiovascular: No symptoms reported. denies: Chest pain Respiratory: Cough, Short of breath Gastrointestinal: Nausea. denies: Abdominal pain, Vomiting Genitourinary: No symptoms reported Female Genitourinary: No symptoms reported Musculoskeletal: No symptoms reported. denies: Back pain Skin: No symptoms reported Hematologic/Lymphatic: No symptoms reported Neurological/Psychological: No symptoms reported Physical Exam - Vital signs Vitals: Temp Pulse Resp BP Pulse Ox 98.1 F 72 16 147/81 H 98 04/09/19 18:07 04/09/19 18:07 04/09/19 18:07 04/09/19 18:07 04/09/19 18:07 - General General appearance: Appears well, Alert In distress: None - HEENT Head: Normocephalic, Atraumatic Eyes: Normal Conjunctiva: Normal Ears: Normal External canal: Normal Tympanic membrane: Normal Sinus: Normal Nasal: Clear rhinorrhea Mouth/Lips: Normal Pharynx: Normal Neck: Normal, Supple. No: Lymphadenopathy, Meningismus - Respiratory Respiratory status: No respiratory distress Chest status: Nontender Breath sounds: Nonproductive cough. No: Rales, Rhonchi, Stridor, Wheezing Chest palpation: Normal - Cardiovascular Rhythm: Regular Heart sounds: S1 appreciated, S2 appreciated Murmur: No - Abdominal Inspection: Obese Distension: No distension Bowel sounds: Normal Tenderness: Nontender Organomegaly: No organomegaly - Back Back: Normal, Nontender. No: CVA tenderness - Extremities General upper extremity: Normal inspection, Nontender, Normal strength General lower extremity: Normal inspection, Nontender, Normal strength - Neurological Neuro grossly intact: Yes Cognition: Normal [place] Coma Scale Eye Opening: Spontaneous [place] Coma Scale Verbal: Oriented [place] Coma Scale Motor: Obeys Commands Danitza Coma Scale Total: 15 - Psychological Associated symptoms: Normal affect, Normal mood - Skin Skin Temperature: Warm Skin Moisture: Dry Skin Color: Normal Course - Re-evaluation Re-evalutation: 04/09/19 22:21 Patient's respirations even unlabored, patient nontoxic in appearance. Patient presents with flulike symptoms with recent exposure to sick contact. Patient without any findings worrisome for pneumonia or pneumothorax on x-ray. No tachycardia or hypoxia. Abdomen is soft nontender. Patient has been able to tolerate oral fluids without emesis. Good return precautions discussed with patient. - Vital Signs Vital signs: Temp Pulse Resp BP Pulse Ox 97.3 F 57 L 18 146/77 H 100 04/09/19 22:11 04/09/19 22:11 04/09/19 22:11 04/09/19 22:11 04/09/19 22:11 - Laboratory Result Diagrams: 04/09/19 18:42 04/09/19 18:42 Laboratory results interpreted by me: 04/09/19 04/09/19 04/09/19 18:42 18:42 22:00 RBC 3.22 L Hgb 9.9 L Hct 27.9 L BUN 23 H Creatinine 9.28 H Est GFR ( Amer) 6 L Est GFR (MDRD) Non-Af 5 L Urine Protein >=500 H Urine Glucose (UA) 50 H Urine Blood MODERATE H 04/09/19 22:21 Labs- Entire Visit 04/09/19 04/09/19 04/09/19 18:42 18:42 18:42 WBC 5.3 RBC 3.22 L Hgb 9.9 L Hct 27.9 L MCV 87 MCH 30.6 MCHC 35.3 RDW 13.6 Plt Count 194 Lymph % (Auto) 18.3 [place] % (Auto) 6.0 Eos % (Auto) 3.4 Baso % (Auto) 0.4 Absolute Neuts (auto) 3.8 Absolute Lymphs (auto) 1.0 Absolute Monos (auto) 0.3 Absolute Eos (auto) 0.2 Absolute Basos (auto) 0.0 Seg Neutrophils % 71.9 Sodium 138.7 Potassium 4.9 Chloride 101 Carbon Dioxide 29 Anion Gap 9 BUN 23 H Creatinine 9.28 H Est GFR ( Amer) 6 L Est GFR (MDRD) Non-Af 5 L Glucose 80 Calcium 8.9 Total Bilirubin 0.6 Direct Bilirubin 0.3 Neonat Total Bilirubin Not Reportable Neonat Direct Bilirubin Not Reportable Neonat Indirect Bili Not Reportable AST 19 ALT 17 Alkaline Phosphatase 52 Total Protein 6.5 Albumin 3.9 Influenza A (Rapid) NEGATIVE Influenza B (Rapid) NEGATIVE - Diagnostic Test Radiology reviewed: Reports reviewed Discharge - Discharge Clinical Impression: Nausea, Flu-like symptoms, Cough Condition: Stable Disposition: HOME, SELF-CARE Instructions: Acetaminophen, Influenza ([facility]), Nausea or Vomiting, Nonspecific ([facility]) Additional Instructions: Return immediately for any new or worsening symptoms: Worsening cough, shortness of breath, persistent fever or any new concerning symptoms Followup with your primary care provider, call tomorrow to make a followup appoi ntment Prescriptions: Oseltamivir Phosphate [Tamiflu 30 mg Capsule] 30 mg PO NOW #3 capsule Referrals: GILBERT,STORMY, CHAINSTITCH FELLED SEAM OPERATOR-C [Primary Care Provider] - Follow up tomorrow
[2019-04-09 22:12] VITALS: BP 146/77
[2019-04-09] MEDS ORDERED: OSELTAMIVIR PHOSPHATE 30 MG CAPSULE PO ONE (22:20)
[2019-04-09 22:27] LABS: APPEARANCE,URINE SLIGHTLY-CLOUDY; BILIRUBIN,URINE NEGATIVE (NEGATIVE); COLOR,URINE YELLOW; GLUCOSE, URINE 50 mg/dL (NEGATIVE); KETONES,URINE NEGATIVE (NEGATIVE); LEUKOCYTE ESTERASE,URINE NEGATIVE (NEGATIVE); NITRITE,URINE NEGATIVE (NEGATIVE); PROTEIN,URINE >=500 mg/dL (NEGATIVE); URINE SPECIFIC GRAVITY 1.011; UROBILINOGEN,URINE NEGATIVE mg/dL (<2.0)
[2019-04-09] MEDS ORDERED: OSELTAMIVIR PHOSPHATE 6 MG/1 ML SUSP 60 ML PO ONE (22:32)
[2019-04-09] MEDS ORDERED: OSELTAMIVIR PHOSPHATE 6 MG/1 ML SUSP 60 ML ONE (22:39)
== END 2019-04-09 22:53 | disposition home or self-care (01) ==
LOC: ER 17:59
DX: R05 Cough (principal); R11.0 Nausea; R06.02 Shortness of breath; R50.9 Fever, unspecified; R09.81 Nasal congestion; J34.89 Other specified disorders of nose and nasal sinuses; I12.0 Hypertensive chronic kidney disease with stage 5 chronic kidney disease or end stage renal disease; E11.22 Type 2 diabetes mellitus with diabetic chronic kidney disease; N18.6 End stage renal disease; Z99.2 Dependence on renal dialysis
CPT/HCPCS: 94640; 99283; 36415; 85025; 80053; 81001; 87804; 71046; A9270 ×3; J7620; S0119

== ENCOUNTER 2020-02-07 14:07 | Emergency (ER) | payer MEDICARE, MEDICAID ==
--- NOTE | 2020-02-07 14:25 | ER Document Report ---
ED Medical Screen (RME) - General Stated Complaint: HIGH PULSE RATE/SHORTNESS OF BREATH Time Seen by Provider: 02/07/20 14:11 Primary Care Provider: TERRELL BYRNE FNP-C [Primary Care Provider] - Follow up as needed Mode of Arrival: Ambulatory Information source: Patient Notes: HPI; 34-year-old female past medical history significant for hypertension end- stage renal disease presents to the emergency room with persistent elevated blood pressure. Complaining of a headache, shortness of breath with palpitations states she ran out of some of her blood pressure medications 2 days ago. States she had dialysis yesterday her blood pressure was 200/100 with an elevated pulse of 107. Did not come to the ER at that time, states symptoms worsened today. She denies any COVID-19 exposure. PE: Alert and oriented x3. Lungs: Clear to auscultation without rales, rhonchi, wheezes. Heart: Tachycardic without murmurs, rubs, gallops. I have greeted and performed a rapid initial assessment of this patient. A comprehensive ED assessment and evaluation of the patient, analysis of test results and completion of the medical decision making process will be conducted by additional ED providers. I have specifically instructed the patient or family members with the patient to immediately return to any nursing staff should anything change in the patient's condition or with their chief complaint. TRAVEL OUTSIDE OF THE [place] 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 Renal/ Medical History: Reports: Hx End Stage Renal Disease, Hx Hemodialysis, Hx Peritoneal Dialysis GI Medical History: Reports: Hx Gastroesophageal Reflux Disease Musculoskeltal Medical History: Denies Hx Arthritis Past Surgical History: Reports: Hx Section, Hx Cholecystectomy, Hx Vascular Surgery - Immunizations Hx Diphtheria, Pertussis, Tetanus Vaccination: Yes Physical Exam - Vital signs Vitals: Temp Pulse Resp BP Pulse Ox 98.0 F 129 H 20 215/130 H 97 02/07/20 14:10 02/07/20 14:10 02/07/20 14:10 02/07/20 14:10 02/07/20 14:10 Course - Vital Signs Vital signs: Temp Pulse Resp BP Pulse Ox 98.0 F 129 H 20 215/130 H 97 02/07/20 14:10 02/07/20 14:10 02/07/20 14:10 02/07/20 14:10 02/07/20 14:10 Doctor's Discharge - Discharge Referrals: TERRELL BYRNE, STUCCO APPLICATOR-C [Primary Care Provider] - Follow up as needed
[2020-02-07 15:06] LABS: ABSOLUTE BASOPHILS # (AUTO) 0.1 10^3/uL (0.0-0.2); ABSOLUTE EOSINOPHILS # (AUTO) 0.1 10^3/uL (0.0-0.6); ABSOLUTE MONOCYTES (AUTO) 0.3 10^3/uL (0.1-1.4); ABSOLUTE NEUT (AUTO) 4.3 10^3/uL (1.7-8.2); BASOPHILS % (AUTO) 2.5 % (0-2); EOSINOPHILS % (AUTO) 1.8 % (0-6); HEMATOCRIT 48.3 % (36.0-47.0); HEMOGLOBIN 16.4 g/dL (12.0-15.5); LYMPHOCYTES % (AUTO) 17.4 % (13-45); MEAN CORPUSCULAR HEMOGLOBIN 30.8 pg (27.0-33.4); MEAN CORPUSCULAR HGB CONC 33.9 g/dL (32.0-36.0); MEAN CORPUSCULAR VOLUME 91 fl (80-97); MONOCYTES % (AUTO) 4.4 % (3-13); PLATELET COUNT 210 10^3/uL (150-450); RED BLOOD COUNT 5.31 10^6/uL (3.72-5.28); RED CELL DISTRIBUTION WIDTH 16.3 % (11.5-14.0); SEGMENTED NEUTROPHILS % (AUTO) 73.9 % (42-78); TOTAL CELLS COUNTED % (AUTO) 100 %; WHITE BLOOD COUNT 5.8 10^3/uL (4.0-10.5)
--- NOTE | 2020-02-07 15:10 | RADIOLOGY REPORT (SQ) ---
EXAM DESCRIPTION: CHEST 2 VIEWS IMAGES COMPLETED DATE/TIME: 02/07/2020 1:51 pm REASON FOR STUDY: dyspnea. COMPARISON: None. EXAM PARAMETERS: NUMBER OF VIEWS: two views TECHNIQUE: Digital Frontal and Lateral radiographic views of the chest acquired. RADIATION DOSE: NA LIMITATIONS: none FINDINGS: LUNGS AND PLEURA: No opacities, masses or pneumothorax. No pleural effusion. MEDIASTINUM AND HILAR STRUCTURES: No masses or contour abnormalities. HEART AND VASCULAR STRUCTURES: Heart normal size. No evidence for failure. BONES: No acute findings. HARDWARE: None in the chest. OTHER: No other significant finding. IMPRESSION: NO ACUTE RADIOGRAPHIC FINDING IN THE CHEST. TECHNICAL DOCUMENTATION: JOB ID: [id number] 2010 [employer]- All Rights Reserved Reading location - IP/workstation name: [email or web address]
[2020-02-07 15:33] LABS: ALBUMIN 4.4 g/dL (3.5-5.0); ALKALINE PHOSPHATASE 58 U/L (38-126); ANION GAP 14 (5-19); ASPARTATE AMINO TRANSFERASE 22 U/L (14-36); BILIRUBIN,DIRECT 0.7 mg/dL (0.0-0.4); BILIRUBIN,TOTAL 0.8 mg/dL (0.2-1.3); BLOOD UREA NITROGEN 20 mg/dL (7-20); CALCIUM 9.9 mg/dL (8.4-10.2); CARBON DIOXIDE 30 mmol/L (22-30); CHLORIDE 96 mmol/L (98-107); GLUCOSE 106 mg/dL (75-110); POTASSIUM 4.5 mmol/L (3.6-5.0); TOTAL PROTEIN 7.2 g/dL (6.3-8.2)
[2020-02-07 15:42] LABS: TROPONIN I 0.021 ng/mL
[2020-02-07] MEDS ORDERED: ONDANSETRON 4 MG TAB.RAPDIS PO ONE (18:55)
[2020-02-07] MEDS ORDERED: AMLODIPINE BESYLATE 10 MG TABLET PO ONE (18:55)
[2020-02-07] MEDS ORDERED: CARVEDILOL 6.25 MG TABLET PO ONE (18:55)
--- NOTE | 2020-02-07 19:01 | ER Document Report ---
Entered by ALMA CHU SCRIBE 02/07/20 1849 Acting as scribe for:DELICIA STRANGE DO ED General - General Chief Complaint: TACHYCARDIA Stated Complaint: HIGH PULSE RATE/SHORTNESS OF BREATH Time Seen by Provider: 02/07/20 14:11 Primary Care Provider: TERRELL BYRNE FNP-C [Primary Care Provider] - Follow up as needed Lalit SCHWARTZ MD [ACTIVE STAFF] - 02/08/20 Mode of Arrival: Ambulatory Information source: Patient Notes: This 34 year old female patient with history of HTN and ESRD with HD (MWF), presents to the emergency department today with complaints of elevated blood pressure. Patient states her last HD was yesterday and is due again tomorrow. Patient reports HD for over 3 years and has a fistula catheter to her left forearm. Patient states her last menstrual period was x1 week ago. Patient reports some nausea, and headache. Denies any fever, bloody stool, or abdominal pain. Patient states she has been out of several of her medications for the past few days. TRAVEL OUTSIDE OF THE [place] 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 denies: Fever EENT: No symptoms reported Cardiovascular: See HPI, Other - elevated blood pressure Respiratory: No symptoms reported Gastrointestinal: See HPI, Nausea. denies: Abdominal pain, Blood streaked bowels Genitourinary: No symptoms reported Female Genitourinary: See HPI, Last menstrual period - x1 week ago Musculoskeletal: No symptoms reported Skin: No symptoms reported Hematologic/Lymphatic: No symptoms reported Neurological/Psychological: See HPI, Headaches -: Yes All other systems reviewed and negative Physical Exam - Vital signs Vitals: Temp 98.1 F 02/07/20 14:07 - General General appearance: Appears well, Alert - HEENT Head: Normocephalic, Atraumatic Eyes: Normal Pupils: PERRL - Respiratory Respiratory status: No respiratory distress Chest status: Nontender Breath sounds: Normal Chest palpation: Normal - Cardiovascular Rhythm: Regular Heart sounds: Normal auscultation Murmur: No - Abdominal Inspection: Obese Distension: No distension Bowel sounds: Normal Tenderness: Nontender - Extremities General upper extremity: Normal ROM General lower extremity: Normal inspection, Normal ROM. No: Edema Notes: Fistula catheter to the left forearm. Palpable thrill. - Neurological Neuro grossly intact: Yes Cognition: Normal Orientation: AAOx4 [place] Coma Scale Eye Opening: Spontaneous [place] Coma Scale Verbal: Oriented [place] Coma Scale Motor: Obeys Commands [place] Coma Scale Total: 15 Speech: Normal Motor strength normal: LUE, RUE, LLE, RLE Sensory: Normal - Psychological Associated symptoms: Normal affect, Normal mood - Skin Skin Temperature: Warm Skin Moisture: Dry Skin Color: Normal Course - Re-evaluation Re-evalutation: 02/07/20 18:56 MDM 34 year old on HD about 3 years and out of amlodipine, clonidine and coreg for a few days. A bit of nausea and concerned over bp. No fever and no abd pain on exam today. Feel she is reasonably managed as outpt with meds here and meds to leave to control BP. Discussed follow up tomororow with her and she expressed understanding. Noted the BNP elevated not unexpectedly with ESRD and HD history. She has cxr that is clear and clinically no chf. - Vital Signs Vital signs: Temp Pulse Resp BP Pulse Ox 98.0 F 94 20 191/95 H 97 02/07/20 14:10 02/07/20 20:24 02/07/20 20:24 02/07/20 20:24 02/07/20 20:24 - Laboratory Results Result Diagrams: 02/07/20 14:44 02/07/20 14:44 Laboratory Results Interpreted: 02/07/20 02/07/20 02/07/20 14:44 14:44 14:44 RBC 5.31 H Hgb 16.4 H Hct 48.3 H RDW 16.3 H Baso % (Auto) 2.5 H Chloride 96 L Creatinine 10.87 H Est GFR ( Amer) 5 L Est GFR (MDRD) Non-Af 4 L Direct Bilirubin 0.7 H NT-Pro-B Natriuret Pep 11413 H Critical Laboratory Results Reviewed: No Critical Results - Radiology Results Critical Radiology Results Reviewed: No Critical Results - EKG Interpretation by Me EKG shows normal: Sinus rhythm Rate: Normal Rhythm: NSR - NSR NL [place] 97 BPM Repolarizaiton abnormality without st elevation or depression my interpretation. Discharge - Discharge Clinical Impression: Medical non-compliance Hypertension Qualifiers: Hypertension type: unspecified Qualified Code(s): I10 - Essential (primary) hypertension Condition: Stable Disposition: HOME, SELF-CARE Instructions: High Blood Pressure ([facility]), Nausea or Vomiting, Nonspecific ([facility]) Additional Instructions: Keep your follow up with hemodialysis tomorrow. Take your medicine as directed. Return here for fever, abdominal pain, other problems or other concerns. Your medicine was sent to [facility]. Prescriptions: Ondansetron [Zofran Odt 4 mg Tablet] 4 mg PO Q4HP PRN #12 tab.rapdis PRN Reason: Carvedilol [Coreg 12.5 mg Tablet] 25 mg PO Q12 #60 tablet Amlodipine Besylate [Norvasc 10 mg Tablet] 10 mg PO DAILY #30 tablet Referrals: TERRELL BYRNE FNP-C [Primary Care Provider] - Follow up as needed Lalit SCHWARTZ MD [ACTIVE STAFF] - 02/08/20 I personally performed the services described in the documentation, reviewed and edited the documentation which was dictated to the scribe in my presence, and it accurately records my words and actions.
[2020-02-07 20:25] VITALS: BP 191/95
--- NOTE | 2020-02-07 20:36 | EKG REPORT ---
SEVERITY:- ABNORMAL ECG - SINUS RHYTHM CONSIDER LEFT VENTRICULAR HYPERTROPHY : Confirmed by: Renato Dos Santos MD 07-Feb-2020 20:35:37
== END 2020-02-07 20:21 | disposition home or self-care (01) ==
LOC: ER 14:07
DX: I12.0 Hypertensive chronic kidney disease with stage 5 chronic kidney disease or end stage renal disease (principal); N18.6 End stage renal disease; Z99.2 Dependence on renal dialysis; R11.0 Nausea; R51.9 Headache, unspecified; F12.10 Cannabis abuse, uncomplicated; Z87.891 Personal history of nicotine dependence; Z91.19 Patient's noncompliance with other medical treatment and regimen
CPT/HCPCS: 93005; 99285; 36415; 84703; 85025; 80053; 84484; 83880; 71046; 93010; A9270 ×3; S0119